=== PATIENT | female | born 2000 | race American Indian/Alaskan Native ===

== ENCOUNTER 2020-08-17 12:58 | Emergency (ER) | payer SELFPAY ==
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
[2020-08-17 13:45] VITALS: BP 107/76
[2020-08-17] MEDS ORDERED: ACETAMINOPHEN 325 MG TAB PO ONE (13:57)
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
[2020-08-17] MEDS ORDERED: IBUPROFEN 600 MG TAB PO ONE (16:24)
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
== END 2020-08-17 18:07 | disposition home or self-care (01) ==
LOC: ED 12:58
DX: S02.2XXA Fracture of nasal bones, initial encounter for closed fracture (principal); S01.21XA Laceration without foreign body of nose, initial encounter; S39.012A Strain of muscle, fascia and tendon of lower back, initial encounter; S16.1XXA Strain of muscle, fascia and tendon at neck level, initial encounter; Z79.899 Other long term (current) drug therapy; V49.49XA Driver injured in collision with other motor vehicles in traffic accident, initial encounter; Y92.410 Unspecified street and highway as the place of occurrence of the external cause; Y93.89 Activity, other specified; Y99.8 Other external cause status
CPT/HCPCS: 70160; 70450; 72125